=== PATIENT | female | born 2000 | race Caucasian/White ===

== ENCOUNTER 2020-08-05 07:09 | Emergency (ER) | payer BC ==
[~2020-08-05] VITALS: Ht 157.5 cm; Wt 54.4 kg
[2020-08-05 07:10] VITALS: BP_SYST 136
[2020-08-05 07:55] VITALS: BP_SYST 136
== END 2020-08-05 07:55 | disposition home or self-care (01) ==
LOC: SED 07:09
DX: L50.9 Urticaria, unspecified (principal)
CPT/HCPCS: 99283